=== PATIENT | male | born 2000 | race Hispanic/Latino ===

== ENCOUNTER 2025-03-30 08:02 | Emergency (ER) | payer BC ==
[~2025-03-30] VITALS: Ht 180.3 cm; Wt 108.9 kg
[2025-03-30] MEDS: LIDOCAINE HCL 2% VISCOUS 15 ML UDCUP PO ONE (08:49)
[2025-03-30] MEDS: ondanSETRON 4MG INJ IVP ONE (08:49)
[2025-03-30] MEDS: PANTOPrazole 40 MG/VIAL IVP ONE (08:50)
[2025-03-30] MEDS: MAG/ALUM/SIMETH 30 ML UDCUP PO ONE (08:50)
[2025-03-30] MEDS: LACTATED RINGERS 1000ML 1,000 ML IV ONE (08:50)
[2025-03-30 08:54] LABS: BASOPHILS # (AUTO) 0.07 K/uL (0.00-0.20); BASOPHILS % (AUTO) 0.5 % (0.0-5.0); EOSINOPHILS # (AUTO) 0.02 K/uL (0.00-0.70); EOSINOPHILS % (AUTO) 0.1 % (0.0-8.0); HEMATOCRIT 48.3 % (42-54); IMMATURE GRANULOCYTE ABSOLUTE 0.06 K/uL (0-1); LYMPHOCYTES # (AUTO) 1.2 K/uL (1.0-4.8); LYMPHOCYTES % (AUTO) 7.9 % (21.0-51.0); MEAN CORPUSCULAR HEMOGLOBIN 29.5 pg (27.0-33.0); MEAN CORPUSCULAR HGB CONC 33.7 g/dL (32.0-36.0); MEAN CORPUSCULAR VOLUME 87.5 fL (79-99); MONOCYTES # (AUTO) 0.6 K/uL (0.1-1.0); MONOCYTES % (AUTO) 4.2 % (3.0-13.0); NEUTROPHILS # (AUTO) 12.8 K/uL (1.8-7.7); NEUTROPHILS % (AUTO) 86.9 % (40.0-77.0); PLATELET COUNT (AUTO) 243 K/uL (130-400); RED BLOOD CELL COUNT(AUTO) 5.52 MIL/uL (4.50-6.20); RED CELL DISTRIBUTION WIDTH 13.2 % (11.0-15.5); WHITE BLOOD COUNT (AUTO) 14.7 K/uL (4.8-10.8)
[2025-03-30 09:00] LABS: AMPHET/METH SCREEN,URINE NEGATIVE (NEGATIVE); BARBITURATE SCREEN, URINE NEGATIVE (NEGATIVE); BENZODIAZEPINES SCREEN,URINE NEGATIVE (NEGATIVE); CANNABINOID SCREEN,URINE POSITIVE (NEGATIVE); COCAINE SCREEN,URINE NEGATIVE (NEGATIVE); OPIATE SCREEN,URINE NEGATIVE (NEGATIVE); PHENCYCLIDINE SCREEN,URINE NEGATIVE (NEGATIVE)
[2025-03-30 09:04] LABS: CREATININE 0.9 mg/dL (0.5-1.3)
[2025-03-30 09:07] LABS: APPEARANCE,URINE CLEAR (CLEAR); BILIRUBIN,URINE NEGATIVE (NEGATIVE); COLOR,URINE LIGHT-YELLOW (YELLOW); GLUCOSE, URINE (UA) NEGATIVE (NEGATIVE); KETONES,URINE NEGATIVE (NEGATIVE); LEUKOCYTE ESTERASE ,URINE NEGATIVE Leu/uL (NEGATIVE); NITRATE,URINE NEGATIVE (NEGATIVE); OCCULT BLOOD,URINE NEGATIVE (NEGATIVE); PROTEIN,URINE 20 mg/dL (NEGATIVE); UROBILINOGEN,URINE 0.2 mg/dL (0.2-1.0)
[2025-03-30 09:08] LABS: ALBUMIN 4.4 g/dL (3.5-5.0); BILIRUBIN,TOTAL 0.4 mg/dL (0.2-1.0); TOTAL PROTEIN, SERUM 8.5 g/dL (6.0-8.3)
[2025-03-30 09:14] LABS: ADD UA MICROSCOPIC YES
[2025-03-30] MEDS ORDERED: LACT-356 PO (09:22)
[2025-03-30] MEDS ORDERED: PANT40TA55 PO (09:22)
--- NOTE | 2025-03-30 09:22 | ERN ---
General Chief Complaint: Nausea,Vomiting,Diarrhea Stated Complaint: NAUSEA, VOMITING, DIARRHEA Time Seen by MD: 08:06 Source: patient History of Present Illness Initial Comments Patient is a 24-year-old male coming in to be evaluated for nausea and vomiting and diarrhea. Patient states that these symptoms began two days ago. He attributes this to eating out at a restaurant and believes he might have gotten food poisoning. No focal tenderness generalized abdominal discomfort. Allergies: Coded Allergies: No Known Drug Allergies (Unverified Allergy, Unknown, 03/30/25) Home Meds Active Scripts Lactobacillus Acidophilus (Acidophilus Probiotic) 500 Million Cell Capsule, 1 CAP PO BID for 30 Days, #60 CAP 0 Refills Prov:JENNIFFER PATRICK MD 03/30/25 Pantoprazole Sodium (Protonix) 40 Mg Ectab, 1 TAB PO DAILY for 30 Days, #30 TAB 0 Refills Prov:JENNIFFER PATRICK MD 03/30/25 Past Medical History Past Medical History: No Pertinent History Past Surgical History: Other Surgical History Other: RIGHT SHOULDER SX ROS Dictation CONSTITUTIONAL: No chills, no fever, no weakness, no diaphoresis, no malaise. HEAD/FACE: No signs of trauma. EENT: No eye pain, no blurred vision, no tearing, no double vision, no ear pain, no ear discharge, no nose pain, no nasal congestion, no throat pain, no throat swelling, no mouth pain. RESPIRATORY: No cough, no orthopnea, no SOB, no stridor, no wheezing. CARDIOVASCULAR: No chest pain, no edema, no palpitations, no syncope. GASTROINTESTINAL/ABDOMINAL: No abdominal pain, no constipation, diarrhea, nausea, vomiting. GENITOURINARY: No abnormal discharge, no dysuria, no frequent urination, no hematuria. No complaints of pain in the genitals. MUSCULOSKELETAL: No back pain, no gout, no joint pain, no joint swelling, no muscle pain, no muscle stiffness, no neck pain. INTEGUMENTARY: No change in color, no change in hair/nails, no dryness, no lesion, no lumps, no rash. NEUROLOGICAL/PSYCH: No anxiety, not depressed, no emotional problem, no h eadache, no numbness, no pre-existing deficit, no history of seizures, no tremors, no weakness. HEMATOLOGIC/LYMPHATIC: Not anemic, no history of blood clots, no apparent bleeding, no bruising, glands not swollen. All Systems Negative, Except as Noted. Physical Exam Physical Exam Dictation VITAL SIGNS: Reviewed. GENERAL APPEARANCE: Alert, oriented x3, no acute distress, obese. HEAD AND FACE: Non-traumatic. EYES: PERRL, pink conjunctivas, eyelid no trauma, anterior chamber clear. EARS: Pinnas intact and no signs of trauma or erythema. Ear canals clear and no discharge. TMs no erythema. NOSE: No discharge, no bleeding. OROPHARYNX: Mouth normal, teeth no caries, tongue pink. Pharynx clear, no erythema. Tonsils no exudates, no abscesses noted. Mucous membrane moist. NECK: Supple, non-tender, no thyromegaly, no masses, no JVD, no bruits. BREAST: Deferred. CHEST: No tenderness, no crepitus, no paradoxical movement, no retractions. LUNGS: Clear, well-ventilated, symmetric, no rales, no wheezing, no rhonchi, no stridor, good breath sounds bilaterally. HEART: Regular rate, regular rhythm, no murmur, no gallops. VASCULAR: No peripheral edema. ABDOMEN: Soft, positive bowel sounds, nondistended, no guarding, nontender, no rebound, no masses no hepatomegaly, no splenomegaly, no Melgoza's sign, no hernias. RECTAL: Deferred. GENITAL: Deferred. NEUROLOGICAL: Normal speech, gross motor function intact, gross sensory function intact. MUSCULOSKELETAL: Neck nontender, full range of motion, back nontender, full range of motion. EXTREMITIES: Nontender, full range of motion. SKIN: Color pink, dry, no turgor, no rash, no lacerations, no abrasions, no contusions. LYMPHATICS: Deferred. Results Laboratory and Microbiology Lab and Micro Result Laboratory Tests Test 03/30/25 08:20 03/30/25 08:34 Urine Color LIGHT-YELLOW (YELLOW) Urine Appearance CLEAR (CLEAR) Urine pH 7.0 (5.0-8.0) Urine Specific [place] 1.027 (1.001-1.031) Urine Protein 20 mg/dL (NEGATIVE) H Urine Glucose (UA) NEGATIVE mg/dL (NEGATIVE) Urine Ketones NEGATIVE mg/dL (NEGATIVE) Urine Occult Blood NEGATIVE (NEGATIVE) Urine Nitrate NEGATIVE (NEGATIVE) Urine Bilirubin NEGATIVE mg/dL (NEGATIVE) Urine Urobilinogen 0.2 mg/dL (0.2-1.0) Urine Leukocyte Esterase NEGATIVE Yandy/uL Urine Opiates Screen NEGATIVE (NEGATIVE) Urine Barbiturates Screen NEGATIVE (NEGATIVE) Urine Phencyclidine Screen NEGATIVE (NEGATIVE) Urine Amphetamines Screen NEGATIVE (NEGATIVE) Urine Benzodiazepines Screen NEGATIVE (NEGATIVE) Urine Cocaine Screen NEGATIVE (NEGATIVE) Urine Marijuana (THC) Screen POSITIVE (NEGATIVE) H White Blood Count 14.7 K/uL (4.8-10.8) H Red Blood Count 5.52 MIL/uL (4.50-6.20) Hemoglobin 16.3 g/dL (14.0-18.0) Hematocrit 48.3 % (42-54) Mean Corpuscular Volume 87.5 fL (79-99) Mean Corpuscular Hemoglobin 29.5 pg (27.0-33.0) Mean Corpuscular Hemoglobin Concent 33.7 g/dL (32.0-36.0) Red Cell Distribution Width 13.2 % (11.0-15.5) Platelet Count 243 K/uL (130-400) Mean Platelet Volume 10.7 fL (7.5-10.5) H Immature Granulocyte % (Auto) 0.4 % (0-1) Neutrophils (%) (Auto) 86.9 % (40.0-77.0) H Lymphocytes (%) (Auto) 7.9 % (21.0-51.0) L Monocytes (%) (Auto) 4.2 % (3.0-13.0) Eosinophils (%) (Auto) 0.1 % (0.0-8.0) Basophils (%) (Auto) 0.5 % (0.0-5.0) Neutrophils # (Auto) 12.8 K/uL (1.8-7.7) H Lymphocytes # (Auto) 1.2 K/uL (1.0-4.8) Monocytes # (Auto) 0.6 K/uL (0.1-1.0) Eosinophils # (Auto) 0.02 K/uL (0.00-0.70) Basophils # (Auto) 0.07 K/uL (0.00-0.20) Absolute Immature Granulocyte (auto 0.06 K/uL (0-1) Nucleated Red Blood Cells 0.0 % (0.0-0.19) Sodium Level 140 mmol/L (136-145) Potassium Level 4.0 mmol/L (3.5-5.1) Chloride Level 104 mmol/L (101-111) Carbon Dioxide Level 28 mmol/L (21-32) Blood Urea Nitrogen 13 mg/dL (7-18) Creatinine 0.9 mg/dL (0.5-1.3) Glomerular Filtration Rate Calc 123 mL/min (>90) Random Glucose 132 mg/dL (70-105) H Total Calcium 9.3 mg/dL (8.5-10.1) Total Bilirubin 0.4 mg/dL (0.2-1.0) Aspartate Amino Transf (AST/SGOT) 53 U/L (10-37) H Alanine Aminotransferase (ALT/SGPT) 166 U/L (12-78) H Alkaline Phosphatase 78 U/L (50-136) Total Creatine Kinase 106 U/L (21-232) Total Protein 8.5 g/dL (6.0-8.3) H Albumin 4.4 g/dL (3.5-5.0) Lipase 32 U/L (16-77) Labs Reviewed?: Yes EKG/XRAY/US/CT/MRI EKG Comment 03/30/2025 time 8:34 a.m. Ventricular rate 103 Sinus rhythm [place] [address] wave elevation or depression MDM MDM: Differential diagnosis: Gastroenteritis, viral gastroenteritis, cannabis abuse, Rationale: Tests considered and ordered secondary to shared decision making include: Previous outside records reviewed: Old ER visits. Risk of complication and/or morbidity or mortality of patient management: None Medications-Per medication reconciliation Patient is a 24-year-old male coming in to be evaluated for nausea and vomiting diarrhea. He states that the symptoms began two days ago in his attributes this to possible food poisoning. Laboratory workup positive for cannabis mild leukocytosis. Patient will be discharged in stable condition with a diagnosis of viral gastroenteritis and cannabis abuse. Patient will be discharged in stable condition tolerating oral intake. ED Course Orders Procedure Category Date Status Time Cbc With Differential LAB 03/30/25 In Process 08:07 Comprehensive LAB 03/30/25 Complete Metabolic Panel 08:07 Urinalysis Profile LAB 03/30/25 In Process 08:07 12 Lead Ekg Tracing- EKG 03/30/25 Logged Technical 08:07 Lactated Ringers PHA 03/30/25 Complete 1000ml (Lactated 08:30 Ondansetron 4mg Inj PHA 03/30/25 Complete (Zofran 4mg Inj) 08:30 Lidocaine Hcl 2% PHA 03/30/25 Complete Viscous (Lidocaine Hcl 08:30 Mag/Alum/Simeth 30ml PHA 03/30/25 Complete (Maalox Plus 30ml) 08:30 Pantoprazole 40mg Inj PHA 03/30/25 Complete (Protonix 40mg Inj 08:30 Creatine Kinase, Total LAB 03/30/25 Complete 08:07 Lipase LAB 03/30/25 Complete 08:07 Drug Screen Urine LAB 03/30/25 Complete 08:08 Current Medications Medications (Trade) Dose Ordered Sig/Harjinder Route PRN Reason Start Time Stop Time Status Last Admin Dose Admin Al Hydroxide/Mg Hydroxide (MAALox PLUS 30ML) 30 ml ONCE ONCE PO 03/30/25 08:30 03/30/25 08:39 DC 03/30/25 08:50 Lactated Ringer's 1,000 ml @ 0 mls/hr ONCE ONCE IV 03/30/25 08:30 03/30/25 08:39 DC 03/30/25 08:50 Lidocaine HCl (Lidocaine HCl 2% Viscous) 10 ml ONCE ONCE PO 03/30/25 08:30 03/30/25 08:39 DC 03/30/25 08:49 Ondansetron HCl (zoFRAN 4MG INJ) 4 mg ONCE ONCE IVP 03/30/25 08:30 03/30/25 08:39 DC 03/30/25 08:49 Pantoprazole Sodium (PROTonix 40MG INJ) 40 mg ONCE ONCE IVP 03/30/25 08:30 03/30/25 08:39 DC 03/30/25 08:50 Vital Signs Date Time Temp Pulse Resp B/P (MAP) Pulse Ox O2 Delivery O2 Flow Rate FiO2 03/30/25 08:38 99.0 94 20 151/95 100 Room Air* 0 21 03/30/25 08:06 99.0 94 20 151/95 100 Room Air DX & DISP Disposition: Discharge Departure Impression: Primary Impression: Cannabis abuse Additional Impression: Viral gastroenteritis Condition: Stable Scripts Lactobacillus Acidophilus (Acidophilus Probiotic) 500 Million Cell Capsule 1 CAP PO BID for 30 Days, #60 CAP 0 Refills Prov: JENNIFFER PATRICK MD 03/30/25 Pantoprazole Sodium (Protonix) 40 Mg Ectab 1 TAB PO DAILY for 30 Days, #30 TAB 0 Refills Prov: JENNIFFER PATRICK MD 03/30/25 Additional Instructions: FOLLOW-UP WITH PRIMARY CARE PROVIDER IN 1 TO 2 DAYS. TAKE MEDICATIONS DIRECTED HERE IN THE EMERGENCY ROOM. OKAY TO CONTINUE HOME MEDICATIONS UNLESS OTHERWISE DISCUSSED DURING YOUR VISIT IN THE EMERGENCY ROOM TODAY. RETURN TO YOUR NEAREST EMERGENCY ROOM IF SYMPTOMS WORSEN OR IF THERE IS NO IMPROVEMENT. CALL 911 IF YOU NEED IMMEDIATE ASSISTANCE. TAKE TYLENOL [id number] NEEDED AND IF NO CONTRAINDICATIONS ARE PRESENT. INCREASE ORAL HYDRATION. A WOUND CULTURE OR URINE CULTURE WAS ORDERED HERE IN THE EMERGENCY ROOM DEPARTMENT PLEASE FOLLOW-UP WITH PRIMARY CARE PROVIDER AND ADVISE THEM TO GET REPEAT PORTS FROM OUR FACILITY. IF YOU HAD ANY LISA WRAP/SPLINTS THAT WERE APPLIED HERE, PLEASE DO NOT REMOVE THEM UNTIL YOU SEE YOUR PRIMARY CARE OR SPECIALTY. Referrals: Referrals: SELF,REFERRAL (PCP) EYAL MAYS MD Time of Disposition: 09:20 JENNIFFER PATRICK MD March 30, 2025 09:22
[2025-03-30 09:32] LABS: MUCUS,URINE RARE LPF (None Seen)
[2025-03-30 09:43] VITALS: BP 127/69; PULSE 76; RESP 18; TEMP 99; O2SAT 100
--- NOTE | 2025-03-30 09:56 | EKG ---
[facility] Test Date: 2025-03-30 Test Time: 08:34:19 Pat Name: JOE SANCHEZ Department: ED Room: Gender: M Electronic Data Interchange Specialist: [id number] : 2000 Requested By: JENNIFFER PATRICK Order Number: [id number] Reading MD: Terry Oakley Measurements Intervals [place] Rate: 103 P: 39 MS: 142 QRS: 26 QRSD: 70 T: 0 QT: 335 QTc: 425 Interpretive Statements Sinus rhythm Paired ventricular premature complexes No previous ECG available for comparison Electronically Signed On 03-30-2025 16:18:43 CDT by Terry Oakley Please click the below link to view image of tracing.
== END 2025-03-30 09:53 | disposition home or self-care (01) ==
LOC: EDH 08:02
DX: A08.4 Viral intestinal infection, unspecified (principal); F12.10 Cannabis abuse, uncomplicated; Z79.899 Other long term (current) drug therapy
CPT/HCPCS: 99284; 96374; 96361; 96375; 82550; 80053; 80305; 83690; 85025; 36415; 93005; 81001; J7120; J2405; J2470